=== PATIENT | male | born 1970 | race Asian ===

== ENCOUNTER 2017-12-28 11:35 | Day surgery (SDC) | payer BC ==
[2017-12-28] MEDS ORDERED: LIDOCAINE 2% (SDV) 5 ML INJ (13:09)
[2017-12-28] MEDS ORDERED: PROPOFOL 20 ML (13:09)
== END 2017-12-28 14:47 | disposition home or self-care (01) ==
LOC: GIL 11:35
DX: K21.9 Gastro-esophageal reflux disease without esophagitis (principal); K29.60 Other gastritis without bleeding; E11.9 Type 2 diabetes mellitus without complications; I10 Essential (primary) hypertension
CPT/HCPCS: 43239; 82962; 87081